=== PATIENT | female | born 1950 | race Caucasian/White ===

== ENCOUNTER 2018-05-20 08:27 | Emergency (ER) | payer OTHER ==
[2018-05-20] MEDS ORDERED: FAMOTIDINE 20 MG TABLET PO ONE (08:41)
--- NOTE | 2018-05-20 08:41 | PDOC ---
History of Present Illness - General Chief Complaint: Allergic Reaction Stated Complaint: ALLERGIC REACTION Time Seen by Provider: 05/20/18 08:41 - History of Present Illness Initial Comments: 05/20/18 08:46 Chief complaint: Rash and itching History of present illness: Patient developed hives and itching last night around 6 PM. She had a CAT scan with contrast around 10:30 AM. No history of prior contrast exposure or iodine ALLERGY. Her only known ALLERGY is to erythromycin, which occurred greater than 40 years ago. She has no food or environmental ALLERGIES that are known. There are no unusual exposures, food or environmental in the last several days. Review of systems: Denies swelling of the oropharynx, throat, or tongue. Admits "puffiness" of the eyelids and face. Denies difficulty swallowing or drooling. Denies wheezing, chest tightness, or shortness of breath. Denies chest pain, abdominal pain, nausea, vomiting, diarrhea. Denies urinary tract symptoms or vaginal bleeding/discharge. Denies visual or focal neurologic symptoms, unsteadiness of gait Past medical history: Thyroidectomy on thyroid replacement. Mild high blood pressure on diuretic. Pulmonary nodules of uncertain etiology, for which she underwent CT scanning yesterday. Chronic cough improved on gabapentin. HRT. Social history: No smoking alcohol or drugs. Active without disability. Denies anxiety/stress Family history: Reviewed and noncontributory including early coronary artery disease, metabolic disease including diabetes, cancer, angioedema or other ALLERGIC disease Physical exam: Alert and oriented 3, well-developed well-nourished, mild distress due to itching, cheerful and cooperative otherwise. Afebrile, vital signs normal HEENT: There is mild edema and erythema of the face including the periorbital areas. Conjunctivae are clear. PERRLA, fundi benign. ENT clear. There is no swelling or edema of the uvula, posterior pharynx, or tongue. There is no stridor or drooling. No respiratory distress Neck supple without bruit mass or nodes Chest clear, full breath sounds bilaterally, no wheezes. Normal respiratory rate and good oxygen saturation CV S1 and S2 normal without murmur rub or gallop pulses full and symmetric no JVD or edema no bruits Abdomen nondistended. Bowel sounds normal. Soft without mass tenderness organomegaly Skin: Diffuse urticaria trunk and extremities. Mild to moderate. Neurological intact Extremities no CCE Impression: Diffuse urticaria with itching, most likely due to IV contrast use for CT scanning yesterday. No sign of angioedema, respiratory, or GI symptoms. Plan: H1 and H2 blockers. Discussed with patient the avoidance of steroids unless condition worsens. Avoid hot baths and showers, cool compresses to most itchy areas, followed by skin moisturizers. Recheck immediately if rash worsens or if there is any swelling, irritation, or pain in the throat, difficulty swallowing or breathing, wheezing or shortness of breath. Otherwise follow-up with primary physician in one to 2 days. More comfortable and fully ambulatory without distress respiratory or otherwise upon discharge to follow-up as directed Past History - Past Medical History Allergies/Adverse Reactions: Allergies Allergy/AdvReac Type Severity Reaction Status Date / Time erythromycin base Allergy Mild Verified 05/20/18 08:28 [Erythromycin Base] Home Medications: Ambulatory Orders Cholecalciferol (Vitamin D3) [Vitamin D3] 2,000 unit PO DAILY capsule 09/21/12 Levothyroxine Sodium [Synthroid] 175 mcg PO DAILY tablet NS 07/30/16 Raloxifene HCl [Evista (Nf) -] 60 mg PO DAILY tablet 07/30/16 Multivitamin [Daily Vitamin Formula] 1 each PO DAILY tablet 11/19/16 Famotidine [Pepcid] 20 mg PO BID #20 tablet 05/20/18 Gabapentin Enacarbil [Horizant] 600 mg PO DAILY 05/20/18 hydrOXYzine PAMOATE [Vistaril -] 25 - 50 mg PO TID #20 capsule 05/20/18 Hypercholesterolemia: Yes Psychiatric Problems: Yes (anxiety, depression) Thyroid Disease: Yes - Surgical History Orthopedic Surgery: Yes (shoulder, knee interventional treatments) - Reproductive History Dysfunctional Uterine Bleeding: No - Suicide/Smoking/Psychosocial Hx Smoking Status: No Smoking History: Never smoked Number of Cigarettes Smoked Daily: 0 Hx Alcohol Use: No Substance Use Type: None *DC/Admit/Observation/Transfer Diagnosis at time of Disposition: Urticaria due to drug allergy - Discharge Dispostion Disposition: HOME Condition at time of disposition: Improved Decision to Admit order: No - Prescriptions Prescriptions: Famotidine [Pepcid] 20 mg PO BID #20 tablet hydrOXYzine PAMOATE [Vistaril -] 25 - 50 mg PO TID #20 capsule - Referrals - Patient Instructions Printed Discharge Instructions: DI for Adverse Drug Reaction -- Allergic Additional Instructions: Avoid hot baths or showers. Cool soaks or cool compresses to itchy areas. Use skin moisturizers Use prescribed medications as directed. Vistaril, otherwise known as hydroxyzine or Atarax, causes drowsiness. You may use one at a time, but if drowsiness is not significant, you should increase the medication to 2 at a time as directed. You may use Benadryl 1 or 2 capsules instead depending on which is more effective. Use the Pepcid, which is also a type of antihistamine, along with either Vistaril or Benadryl. Return to ER immediately if the rash becomes more severe, swelling of the face increases, or there is swelling or edema of the inside of the mouth or throat, or there is difficulty swallowing or breathing, noisy breathing, drooling, or wheezing in the chest. Otherwise follow-up with primary physician 1-2 days - Post Discharge Activity
[2018-05-20 08:42] VITALS: BP 135/79; PULSE 92; TEMP 98.4; BMI 28.8
[2018-05-20] MEDS ORDERED: hydrOXYzine HCL 100 MG/2 ML VIAL IM ONE (08:42)
[2018-05-20] MEDS ORDERED: hydrOXYzine HCL 25 MG TABLET (FP) PO ONE (08:44)
[2018-05-20] MEDS ORDERED: hydrOXYzine PAMOATE 50 MG CAPSULE (FP) PO ONE (08:44)
[2018-05-20] MEDS ORDERED: FAMOTIDINE 20 MG TABLET ONE (08:44)
[2018-05-20] MEDS ORDERED: hydrOXYzine PAMOATE 25 MG CAPSULE (FP) PO ONE (08:47)
== END 2018-05-20 09:48 | disposition home or self-care (01) ==
LOC: FER 08:27
DX: L50.0 Allergic urticaria (principal); E07.9 Disorder of thyroid, unspecified; R10.0 Acute abdomen; R05 Cough
CPT/HCPCS: 99282-25